=== PATIENT | female | born 1995 | race African-American/Black ===

== ENCOUNTER 2019-07-18 08:02 | Observation (INO) | payer SELFPAY ==
[~2019-07-18] VITALS: Ht 170.2 cm; Wt 56.7 kg
[2019-07-18] MEDS ORDERED: DEXT 5%/LACTATED RINGERS 1,000 ML IV SCH (08:30)
[2019-07-18] MEDS ORDERED: BETAMETHASONE ACET/BETAMET 30 MG/5 ML VIAL IM NR (10:00)
[2019-07-18 10:13] LABS: BASOPHILS % 0.2 % (0.0-2.0); EOSINOPHILS % 2.1 % (0.0-5.0); HEMATOCRIT. 28.5 % (36.0-48.0); HEMOGLOBIN. 9.8 g/dL (12.0-16.0); LYMPHOCYTES % 27.1 % (20.0-50.0); MEAN CORPUSCULAR VOLUME 84.6 fL (81.0-99.0); MEAN PLATELET VOLUME 10.4 fl (7.4-10.4); MONOCYTES % 8.6 % (2.0-8.0); PLATELET 131 x1000/uL (130-400); RED BLOOD CELL COUNT 3.37 mill/uL (4.2-5.4); RED CELL DISTRIBUTION WIDTH 14.4 % (11.6-14.6)
[2019-07-18] MEDS: TERBUTALINE SULFATE 1MG/ML VIAL SUBCUT PRN ×3 (10:13→12:09)
[2019-07-18 10:46] LABS: CLARITY URINE CLEAR (CLEAR); COLOR URINE YELLOW (YELLOW); KETONES URINE NEGATIVE (NEGATIVE); LEUKOCYTE ESTERASE URINE NEGATIVE (NEGATIVE); NITRITE URINE NEGATIVE (NEGATIVE); OCCULT BLOOD URINE NEGATIVE (NEGATIVE); PH URINE 7.5 (4.5-8.0); PROTEIN URINE NEGATIVE (NEGATIVE); SPECIFIC GRAVITY URINE 1.019 (1.005-1.030); UROBILINOGEN URINE 0.2 E.U./dL (0.2-1.0)
== END 2019-07-18 16:38 | disposition home or self-care (01) ==
LOC: 8 EST LDRP 08:02
PROVIDERS: ADMIT Obstetrics & Gynecology; ATTEND Obstetrics & Gynecology
DX: O62.9 Abnormality of forces of labor, unspecified (principal); Z3A.37 37 weeks gestation of pregnancy
CPT/HCPCS: 36415; 76805; 76830; 81003; 85025; 96372; 99281; G0378; J0702; J3105; J7121; 59412; 96360; 96361

== ENCOUNTER 2019-07-18 20:14 | Observation (INO) | payer SELFPAY ==
[~2019-07-18] VITALS: Ht 170.2 cm; Wt 56.7 kg
[2019-07-18] MEDS ORDERED: DEXT 5%/LACTATED RINGERS 1,000 ML IV NR (23:30)
[2019-07-19] MEDS ORDERED: DEXT 5%/LACTATED RINGERS 1,000 ML IV SCH
== END 2019-07-19 05:00 | disposition home or self-care (01) ==
LOC: 8 EST LDRP 20:14
PROVIDERS: ADMIT Obstetrics & Gynecology; ATTEND Obstetrics & Gynecology
DX: O62.9 Abnormality of forces of labor, unspecified (principal); O21.2 Late vomiting of pregnancy; Z98.891 History of uterine scar from previous surgery; Z3A.38 38 weeks gestation of pregnancy
CPT/HCPCS: 99281; G0378; 96360; 96361

== ENCOUNTER 2019-07-25 10:53 | Observation (INO) | payer MEDICAID ==
[~2019-07-25] VITALS: Ht 170.2 cm; Wt 56.7 kg
[2019-07-25] MEDS ORDERED: LACTATED RINGERS 500 ML IV SCH (11:30)
== END 2019-07-25 13:54 | disposition home or self-care (01) ==
LOC: 8 EST LDRP 10:53
PROVIDERS: ADMIT Obstetrics & Gynecology; ATTEND Obstetrics & Gynecology
DX: O62.9 Abnormality of forces of labor, unspecified (principal); O21.2 Late vomiting of pregnancy; Z3A.38 38 weeks gestation of pregnancy
CPT/HCPCS: 99281; G0378; 96360; 96361